=== PATIENT | female | born 1980 | race Caucasian/White ===

== ENCOUNTER 2022-03-14 12:01 | Outpatient (REF) | payer OTHER, SELFPAY ==
[2022-03-14 14:15] LABS: C Reactive Protein 0.13 mg/dL (< or = 0.50); Estimated Glomerular Filt Rate > 60
[2022-03-14 14:30] LABS: Thyroid Stimulating Hormone 1.42 uIU/mL (0.32-4.0)
[2022-03-14 14:37] LABS: Erythrocyte Sedimentation Rate 17 MM/HR (0-20)
[2022-03-14 14:39] LABS: Creatinine Urine 82.02 mg/dL; Total Protein Urine Random < 7 mg/dL (<12)
[2022-03-17 21:22] LABS: Anti DNA DS Antibody 1 IU/mL; Antibody to SS-A Antigen <1.0 NEG AI (<1.0 NEG); Antibody to SS-B Antigen <1.0 NEG AI (<1.0 NEG); SM/Ribonucleoprotein Ab <1.0 NEG AI (<1.0 NEG); Smith Protein <1.0 NEG AI (<1.0 NEG)
== END 2022-03-14 12:02 | disposition home or self-care (01) ==
LOC: HO.10HDL 12:01
PROVIDERS: Visit Provider Internal Medicine Rheumatology
DX: M25.50 Pain in unspecified joint (principal); R68.2 Dry mouth, unspecified; R53.83 Other fatigue; R76.8 Other specified abnormal immunological findings in serum; F41.9 Anxiety disorder, unspecified; Z79.899 Other long term (current) drug therapy
CPT/HCPCS: 36415; 82565; 84156; 84443; 85652; 86140; 86225; 86235; 99202

== ENCOUNTER → 2022-04-21 08:04 | Outpatient (BNVA) | payer OTHER, SELFPAY | PROVIDERS: PCP Internal Medicine; Visit Provider Nurse Practitioner Family | DX: G43.009 Migraine without aura, not intractable, without status migrainosus (principal); R06.83 Snoring; G47.19 Other hypersomnia; F09 Unspecified mental disorder due to known physiological condition; Z79.899 Other long term (current) drug therapy | CPT/HCPCS: 99202 ==